=== PATIENT | female | born 1945 | race Caucasian/White ===

== ENCOUNTER 2021-03-23 22:37 | Emergency (ER) | payer OTHER, BC ==
[~2021-03-23] VITALS: Ht 160 cm; Wt 64.9 kg
== END 2021-03-24 01:35 | disposition home or self-care (01) ==
LOC: ER 22:37
DX: S00.03XA Contusion of scalp, initial encounter (principal); W01.10XA Fall on same level from slipping, tripping and stumbling with subsequent striking against unspecified object, initial encounter
CPT/HCPCS: 99283; A9270